=== PATIENT | female | born 1950 | race Caucasian/White ===

== ENCOUNTER → 2017-11-21 21:33 | Emergency (ER) | payer MEDICARE ==
--- NOTE | 2017-11-21 23:18 | ED ---
Upper Extremity Pain - HPI Summary HPI Summary: This is scribe Zac Eastman documenting for attending Christopher Vargas M.D. Patient is a 67 y/o F w/ c/o right shoulder pain onsetting a couple of days ago. She describes pain as burning and notes gradual onset of Sx. She also states right shoulder feels weak and pain waxes and wanes. She reports some pain with movement. She notes no neck pain but describes it as feeling tight. She denies numbness. On triage, pain is rated 5/10 but in the room she denies pain. She came in for treatment as she is concerned that she would otherwise damage her arm. Pt had shoulder surgery x2 years ago. No Hx of neck problems. On triage, nothing is noted to aggravate/alleviate Sx. Home medications and allergies reviewed. I, Dr. Vargas, personally performed the services described in this documentation as scribed in my presence and it is both accurate and complete. - History of Current Complaint Chief Complaint: EDShoulderCRamsesj Stated Complaint: RT SHOULDER PAIN Time Seen by Provider: 11/21/17 22:59 Hx Obtained From: Patient Onset/Duration: Started Days Ago - a couple of days ago, Resolved - in the room , she denies presence of pain Timing: Intermittent - waxing and waning pain Severity Currently: None - 0/10 Character: Burning Aggravating Factor(s): Movement Alleviating Factor(s): Nothing Associated Signs & Symptoms: Negative: Neck Pain - notes neck feels tight - Allergies/Home Medications Allergies/Adverse Reactions: Allergies Allergy/AdvReac Type Severity Reaction Status Date / Time No Known Allergies Allergy Verified 11/21/17 21:49 PMH/Surg Hx/FS Hx/Imm Hx Sensory History: Denies: Hx Legally Blind, Hx Deafness Opthamlomology History: Denies: Hx Legally Blind EENT History: Denies: Hx Deafness Infectious Disease History: No Infectious Disease History: Denies: Traveled Outside the [place] in Last 30 Days - Family History Known Family History: Negative: Blood Disorder - Social History Alcohol Use: None Substance Use Type: Reports: None Smoking Status (MU): Never Smoked Tobacco Review of Systems Negative: Fever - on vitals, temperature is 97.8 F Positive: Other - NEGATIVE: neck pain POSITIVE: neck tightness; left shoulder pain, not present in the room All Other Systems Reviewed And Are Negative: Yes Physical Exam - Summary Physical Exam Summary: VITAL SIGNS: Reviewed. GENERAL: Patient is a well-developed and nourished female who is lying comfortable in the stretcher. Patient is not in any acute respiratory distress. HEAD AND FACE: No signs of trauma. No ecchymosis, hematomas or skull depressions. No sinus tenderness. EYES: PERRLA, EOMI x 2, No injected conjunctiva, no nystagmus. EARS: Hearing grossly intact. Ear canals and tympanic membranes are within normal limits. MOUTH: Oropharynx within normal limits. NECK: Supple, trachea is midline, no adenopathy, no JVD, no carotid bruit, no c- spine tenderness, neck with full ROM. CHEST: Symmetric, no tenderness at palpation LUNGS: Clear to auscultation bilaterally. No wheezing or crackles. CVS: Regular rate and rhythm, S1 and S2 present, no murmurs or gallops appreciated. ABDOMEN: Soft, non-tender. No signs of distention. No rebound no guarding, and no masses palpated. Bowel sounds are normal. EXTREMITIES: FROM in all major joints, no edema, no cyanosis or clubbing. NEURO: Alert and oriented x 3. No acute neurological deficits. Speech is normal and follows commands. SKIN: Dry and warm Triage Information Reviewed: Yes Vital Signs On Initial Exam: Initial Vitals Temp Pulse Resp BP Pulse Ox 97.8 F 66 16 132/78 100 11/21/17 21:41 11/21/17 21:41 11/21/17 21:41 11/21/17 21:41 11/21/17 21:41 Vital Signs Reviewed: Yes Diagnostics - Vital Signs Vital Signs Temp Pulse Resp BP Pulse Ox 11/21/17 21:41 97.8 F 66 16 132/78 100 - Laboratory Lab Statement: Any lab studies that have been ordered have been reviewed, and results considered in the medical decision making process. Course/Dx - Course Assessment/Plan: Patient is a 67 y/o F w/ c/o right shoulder pain onsetting a couple of days ago. She describes pain as burning and notes gradual onset of Sx. She also states right shoulder feels weak and pain waxes and wanes. She reports some pain with movement. She notes no neck pain but describes it as feeling tight. She denies numbness. On triage, pain is rated 5/10 but in the room she denies pain. She came in for treatment as she is concerned that she would otherwise damage her arm. Pt had shoulder surgery x2 years ago. No Hx of neck problems. On triage, nothing is noted to aggravate/alleviate Sx. As there is no MRI at [facility], patient was discharged to home with a ISABEL sling and instructed to follow up with a orthopedic doctor in 1-2 days. Patient denied pain medication and she is agreeable with the follow up plan. She was diagnosed with shoulder pain and cervical radiculopathy. - Diagnoses Provider Diagnoses: Cervical radiculopathy, Right shoulder pain Discharge - Sign-Out/Discharge Documenting (check all that apply): Patient Departure - discharge - Discharge Plan Condition: Stable Disposition: HOME Patient Education Materials: Cervical Radiculopathy (ED), Shoulder Pain (ED) Referrals: Mega Pizano MD [Medical Doctor] - 2 Days Additional Instructions: Follow up with orthopedic doctor in 1-2 days. Return to ED for any changing or worsening symptoms.
[2017-11-21 23:35] VITALS: BP 131/88
== END | disposition home or self-care (01) ==
LOC: ED 21:33
DX: M54.12 Radiculopathy, cervical region (principal); M25.511 Pain in right shoulder
CPT/HCPCS: 99282